=== PATIENT | female | born 1970 | race Caucasian/White ===

== ENCOUNTER → 2020-08-30 | Outpatient (CLI) | payer OTHER ==
--- NOTE | 2020-08-30 11:59 | US ---
EXAMINATION TYPE: US abdomen complete DATE OF EXAM: 08/30/2020 COMPARISON: NONE CLINICAL HISTORY: 50-year-old female R11.0 nausea. TECHNIQUE: Multiple sonographic images of the abdomen are obtained. FINDINGS: EXAM MEASUREMENTS: Liver Length: 13.8 cm Gallbladder Wall: 0.2 cm CBD: 0.5 cm Spleen: 10.9 cm Right Kidney: 9.8 x 4.5 x 4.6 cm Left Kidney: 9.7 x 4.1 x 4.6 cm Pancreas: wnl Liver: wnl Gallbladder: No stones seen Evidence for sonographic He's sign: No CBD: wnl Spleen: wnl Right Kidney: [id number] hydronephrosis and hydroureter on the right. Left Kidney: No hydronephrosis or masses seen Upper IVC: wnl Abd Aorta: wnl IMPRESSION: 1. Mild to moderate hydronephrosis and proximal hydroureter on the right. Consider CT to assess for a potential etiology. 2. Otherwise, no specific abnormality seen.
== END | disposition home or self-care (01) ==
LOC: RADUSWWP 07:03
PROVIDERS: ATTEND Internal Medicine
DX: N13.30 Unspecified hydronephrosis (principal); N13.4 Hydroureter
CPT/HCPCS: 76700

== ENCOUNTER 2020-09-18 11:27 | Day surgery (SDC) | payer OTHER ==
[2020-09-13 08:55] VITALS: BMI 22.2
[~2020-09-18 11:27] MED LIST: LACTATED RINGERS 1,000 ML IV SCH; LIDOCAINE 1% (10MG/ML) FOR IV START INTRADERMA PRN
[2020-09-18 12:41] VITALS: TEMP 98.3
[2020-09-18] MEDS ORDERED: PROPOFOL 10 MG/ML 20 ML VIAL IV ONE (12:51)
--- NOTE | 2020-09-18 13:08 | P.PCN ---
Date of Procedure: 09/18/20 Procedure(s) Performed: Brief history: Patient is a pleasant, 50-year-old white female scheduled for an elective upper endoscopy as well as colonoscopy as a part of evaluation of I deficiency anemia. She denies any GI symptoms. Procedure performed: Esophagogastroduodenoscopy with biopsy Colonoscopy Preoperative diagnosis: Iron deficiency anemia Anes thesia: MAC Procedure: After informed consent was obtained from the patient was brought into the endoscopy unit and IV sedation was administered by anesthesia under continuous monitoring. Initially upper endoscopy was done. The Olympus GF 160 video endoscope was inserted inserted into the mouth and esophagus intubated without any difficulty and was gradually advanced into the stomach and duodenum and carefully examined. The bulb and second part of the duodenum appeared normal. As his were done from the duodenum to rule out celiac disease. The scope was then withdrawn into the stomach adequately insufflated with air and upon careful examination the antrum and body, cardia and fundus appeared normal. Gastritis and biopsies were done from the antrum of the stomach. The scope was then withdrawn into the esophagus. The GE junction was located at 38 cm to the incisors. Small sliding-type well hernia noted. It appeared regular with no erythema erosions or ulcerations. Rest of the esophagus appeared normal. Patient tolerated the procedure well. At this time the patient continued to remain sedation. Initial digital rectal examination was normal. Olympus CF 160 video colonoscope was then inserted into the rectum and gradually advanced to the cecum without any difficulty. Careful examination was performed as the scope was gradually being withdrawn. The prep was excellent. The cecum, ascending colon, transverse colon, descending colon, sigmoid colon and rectum appeared normal. Retroflexion was performed in the rectum and no lesions were noted. Patient tolerated the procedure well. Impression: 1. Upper endoscopy revealed mild antral gastritis and small hiatal hernia. 2. Colonoscopy was essentially within normal limits with no evidence of colitis or colorectal neoplasia. Recommendations: Findings of this examination were discussed with the patient as well as her family. She was advised to follow with the biopsy results. She was advised to have a repeat screening colonoscopy in 10 years.
[2020-09-18 13:43] VITALS: BP 134/76; PULSE 83; RESP 20
== END 2020-09-18 13:44 | disposition home or self-care (01) ==
LOC: ORWHC2ENDO 11:27
PROVIDERS: ATTEND Internal Medicine Gastroenterology
DX: D50.9 Iron deficiency anemia, unspecified (principal); K29.50 Unspecified chronic gastritis without bleeding; K44.9 Diaphragmatic hernia without obstruction or gangrene
CPT/HCPCS: 81025; 88305; 45378; 43239; J2704

== ENCOUNTER → 2022-03-19 | Outpatient (CLI) | payer OTHER ==
--- NOTE | 2022-03-19 11:05 | CT ---
EXAMINATION TYPE: CT urogram wo/w con CT DLP: 2724 mGycm, Automated exposure control for dose reduction was used. DATE OF EXAM: 03/19/2022 10:32 AM COMPARISON: Abdominal ultrasound 08/30/2020. CLINICAL INDICATION:Female, 52 years old with history of N13.30 hydronephrosis; TECHNIQUE: Urogram was performed before and after the uneventful administration of 70 mL of Isovue-300 intraveno usly. Delayed imaging was performed.. Coronal and sagittal reformats were performed. One or more CT d ose reduction strategies were utilized during this examination. 2D and 3D reconstructions are perform ed to assist visualization of the urinary tract on a separate workstation. FINDINGS: GENITOURINARY: RIGHT KIDNEY AND URETER: Few nonobstructive right renal calculi with largest in the inferior pole minor suring up to 2 mm. Mild right hydroureteronephrosis with focal transition at the ureteropelvic juncti on. No obstructing calculus identified. Contrast is demonstrated within the collecting system on franklin yed phase. There is decreased attenuation of the contrast in the right ureter compared to the left ho wever there is no filling defect or wall thickening identified. No renal mass. Regions of cortical th inning identified likely related to remote injury. LEFT KIDNEY AND URETER: Few nonobstructive left renal calculi measuring up to 2 mm. Prominent left ex trarenal pelvis without evidence of hydroureter or hydronephrosis. Contrast is demonstrated within th e collecting system on the delayed phase. Mild urothelial wall enhancement in the renal pelvis. No ur othelial lesions: no filling defect, dilation, stricture. Regions of cortical thinning identified lik sakina related to an old injury. No renal mass. URINARY BLADDER: Poorly opacified with limits evaluation for mass or other lesions. Trabeculated appe arance with diverticula demonstrated. No calculi demonstrated. REPRODUCTIVE: Retroverted uterus. No suspicious adnexal mass.. ABDOMEN LIVER: Unremarkable. GALLBLADDER AND BILE DUCTS: Unremarkable PANCREAS: Unremarkable. SPLEEN: Unremarkable. ADRENAL GLANDS: Unremarkable. STOMACH AND BOWEL: Unremarkable. No evidence of bowel obstruction. PERITONEUM: No evidence of pneumoperitoneum, free fluid, or adenopathy. VASCULATURE: No aortic aneurysm. MUSCULOSKELETAL: No acute osseous abnormalities. No aggressive osseous lesion. SOFT TISSUE/ABDOMINAL WALL: Fat filled bilateral inguinal hernias with right greater than left. LOWER CHEST: Bibasilar linear scarring and or atelectasis. IMPRESSION: 1. Mild right hydroureteronephrosis with focal transition at the ureteropelvic junction. No obstructi ng calculus or lesion identified. Contrast does extend through the right ureter into the urinary blad jaden on delayed imaging without focal lesion. No suspicious renal lesion. Findings suggest possible UP J stricture. Decreased attenuation of the contrast within the right ureter compared to the left. 2. Prominent left extra renal pelvis with nonspecific urothelial thickening. No evidence for hydronep hrosis or obstructing calculus. No suspicious renal lesion. 3. Nodular to bilateral renal calculi. 4. Trabeculated appearance of the urinary bladder with bladder diverticulum. There is poor opacificat ion which limits evaluation for masses. 5. Bilateral fat filled inguinal hernias with right greater than left.
== END | disposition home or self-care (01) ==
LOC: RADCTMAIN 08:21
PROVIDERS: ATTEND Urology
DX: N13.30 Unspecified hydronephrosis (principal)
CPT/HCPCS: 74178; 36415; 74400; Q9967

== ENCOUNTER → 2022-04-21 | Outpatient (CLI) | payer OTHER ==
[~2022-04-21] MED LIST changes: +FUROSEMIDE 10 MG/ML 2 ML VIAL IV ONE; -LACTATED RINGERS 1,000 ML IV SCH; -LIDOCAINE 1% (10MG/ML) FOR IV START INTRADERMA PRN
--- NOTE | 2022-04-21 14:15 | NM ---
EXAMINATION TYPE: NM lasix renogram DATE OF EXAM: 04/21/2022 COMPARISON: 03/21/2022 HISTORY: Hydronephrosis Following administration of 9.7 mCi Tc 99m MAG3 with 20mg Lasix. Immediate images post injection FINDINGS: Left: 39.6 %. Right: 60.4 %. Max renal flow left: 10 minutes. Max renal flow right: 14.5 minutes. Satisfactory accumulation of radiotracer within both renal collecting systems. After the administrati on of Lasix, there is delayed excretion of contrast from the bilateral collecting system with greater involvement of the right. T 1/2 left: NOT AVAILABLE minutes. T 1/2 right: NOT AVAILABLE minutes. IMPRESSION: 1. Abnormal split renal function of 60% on the right and 40% on the left. 2. Delayed excretion from the right system compatible with hydronephrosis.
== END | disposition home or self-care (01) ==
LOC: RADNMMAIN 12:31
PROVIDERS: ATTEND Urology
DX: R94.4 Abnormal results of kidney function studies (principal); N13.30 Unspecified hydronephrosis
CPT/HCPCS: 78708; A9562

== ENCOUNTER 2022-06-28 13:05 | Emergency (ER) | payer OTHER ==
[2022-06-28] MEDS ORDERED: GLUCAGON 1 MG/ML VIAL IVP STA (13:24)
[2022-06-28] MEDS ORDERED: SODIUM CHLORIDE 0.9% 500 ML 500 ML IV ONE (13:24)
--- NOTE | 2022-06-28 14:00 | XR ---
EXAMINATION TYPE: XR chest 2V DATE OF EXAM: 06/28/2022 1:41 PM COMPARISON: None TECHNIQUE: XR chest 2V Frontal and lateral views of the chest. CLINICAL INDICATION:Female, 52 years old with history of food impaction; FINDINGS: Lungs/Pleura: There is flattening of the diaphragm with increased lucency of the lungs. No evidence o f pneumothorax, pleural effusion or focal consolidation. Pulmonary vascularity: Unremarkable. Heart/mediastinum: Cardiomediastinal silhouette is unremarkable. Musculoskeletal: No acute osseous pathology. IMPRESSION: 1. No acute cardiopulmonary disease process. 2. COPD changes.
--- NOTE | 2022-06-28 14:35 | ED ---
General Adult HPI - General Chief complaint: Skin/Abscess/Foreign Body Stated complaint: foreign object in throat Time Seen by Provider: 06/28/22 13:20 Source: patient, RN notes reviewed, old records reviewed Mode of arrival: ambulatory Limitations: no limitations - History of Present Illness Initial comments: Patient is a 52-year-old female with no significant past medical history presents emergency Department after eating cantaloupe at home. Believes it is stuck in her throat. This occurred suddenly prior to arrival. Is complaining of discomfort in the back of her throat. She is unable to swallow any solids or liquids. Is having to spit up all of her oral secretions that she cannot tolerate swallowing them. She denies any difficulty in breathing. Denies any nausea. Denies any diarrhea. Denies any sick contacts. Since this is not occurred previously. Presents emergency department for further evaluation. Has no known ALLERGIES. Presents with her father. - Related Data Home Medications Medication Instructions Recorded Confirmed Ascorbic Acid [Vitamin C] 500 mg PO DAILY 09/13/20 09/13/20 Multivit with Calcium,Iron,Min 1 each PO DAILY 09/13/20 09/13/20 [Women's Multivitamin] Allergies Allergy/AdvReac Type Severity Reaction Status Date / Time No Known Allergies Allergy Verified 09/18/20 12:12 Review of Systems ROS Statement: Those systems with pertinent positive or pertinent negative responses have been documented in the HPI. Review of Systems: CONST: Denies fever EYES: Denies blurry vision ENT: Denies nasal congestion C/V: Denies Chest pain RESP: Denies shortness of breath GI: Denies abdominal pain : Denies dysuria SKIN: Denies rash. MSK: Denies joint pain. NEURO: Denies headache ROS Other: All systems not noted in ROS Statement are negative. Past Medical History Past Medical History: No Reported History History of Any Multi-Drug Resistant Organisms: None Reported Past Surgical History: No Surgical Hx Reported Past Psychological History: No Psychological Hx Reported Smoking Status: Never smoker Past Alcohol Use History: Occasional Past Drug Use History: None Reported General Exam - General Exam Comments Initial Comments: General: Appears in no acute distress. HEAD: Normal with no signs of head trauma. EYES: EOMI ENT: Patient is actively spitting on oral secretions. No obvious abnormality in the posterior oropharynx. Uvula is midline. Patient unable to swallow. Negative stridor. RESPIRATORY: Clear breath sounds bilaterally. No respiratory distress. C/V: Regular rate and rhythm. S1 and S2 auscultated, peripheral pulses 2+ and intact throughout ABD: Abd is soft, nontender, nondistended EXT: Normal range of motion, no obvious deformity SKIN: No rashes or lesions observed on exposed skin. NEURO: Alert and oriented 4. Limitations: no limitations Course Vital Signs 06/28/22 06/28/22 06/28/22 13:09 14:50 15:40 Temperature 98 F 97.8 F 97.9 F Pulse Rate 107 H 86 89 Respiratory 18 20 18 Rate Blood Pressure 144/85 145/92 133/89 O2 Sat by Pulse 95 97 97 Oximetry Medical Decision Making - Medical Decision Making Based on the patient's presentation and physical exam, and concern for an esophageal food impaction likely cantaloupe for the patient. She is unable to tolerate oral intake. She is spitting up her oral secretions. Did recommend a chest x-ray as well as trial with IV medications IV fluids, glucagon, Valium. She was in agreement this plan. Vital signs within except for limits. No respiratory distress. Chest x-ray revealed no acute cardio pulmonary process. After approximate 1 hour of observation, patient is no change in symptoms. Still unable to tolerate oral intake. Still unable to tolerate her secretions. I discussed the patient that she likely requires an EGD for retrieval of the food impaction. However we do not have gastroenterology here to perform the procedure. Therefore she will likely require transfer. She was in agreement this plan as was her father. I did attempt to transfer the patient to [facility]. GI services are available there. Accepting physician is Dr. Hernández in the ER. Patient be transferred via EMS for evaluation by GI. Patient is transferred in stable condition.Reason for transfer is that we do not have GI services available and she requires GI evaluation. Was pt. sent in by a medical professional or institution (, PA, RETURNED GOODS REPAIRER, urgent care, hospital, or fdc...) When possible be specific @ -No Did you speak to anyone other than the patient for history (EMS, parent, family, police, friend...)? What history was obtained from this source @ -Yes, patient's father who assisted in the history. Did you review nursing and triage notes (agree or disagree)? Why? @ -I reviewed and agree with nursing and triage notes Were old charts reviewed (outside hosp., previous admission, EMS record, old EKG, old radiological studies, urgent care reports/EKG's, fdc records)? Report findings @ -No old charts were reviewed Differential Diagnosis (chest pain, altered mental status, abdominal pain women, abdominal pain men, vaginal bleeding, weakness, fever, dyspnea, syncope, headache, dizziness, GI bleed, back pain, seizure, CVA, palpatations, mental health)? @ -not applicable EKG interpreted by me (3pts min.). @ -None done X-rays interpreted by me (1pt min.). @ -Chest x-ray reveals no acute cardiopulmonary process. CT interpreted by me (1pt min.). @ -None done U/S interpreted by me (1pt. min.). @ -None done What testing was considered but not performed or refused? (CT, X-rays, U/S, labs)? Why? @ -None What meds were considered but not given or refused? Why? @ -None Did you discuss the management of the patient with other professionals (professionals i.e. , PA, RETURNED GOODS REPAIRER, lab, RT, psych nurse, geriatric social worker, wet pan operator, teacher, customer service officer, case hardener)? Give summary @ -No Was smoking cessation discussed for >3mins.? @ -No Was critical care preformed (if so, how long)? @ -Yes, 35 min. Were there social determinants of health that impacted care today? How? (Homelessness, low income, unemployed, alcoholism, drug addiction, transportation, low edu. Level, literacy, decrease access to med. care, intermediate, rehab)? @ -No Was there de-escalation of care discussed even if they declined (Discuss DNR or withdrawal of care, Hospice)? DNR status @ -No What co-morbidities impacted this encounter? (DM, HTN, Smoking, COPD, CAD, Cancer, CVA, ARF, Chemo, Hep., AIDS, mental health diagnosis, sleep apnea, morbid obesity)? @ -None Was patient admitted / discharged? Hospital course, mention meds given and route, prescriptions, significant lab abnormalities, going to OR and other pertinent info. @ -Transfer to [facility] for evaluation by GI services. See above for ED course. Undiagnosed new problem with uncertain prognosis? @ -No Drug Therapy requiring intensive monitoring for toxicity (Heparin, Nitro, Insulin, Cardizem)? @ -No Were any procedures done? @ -No Diagnosis/symptom? @ -Esophageal food impaction Acute, or Chronic, or Acute on Chronic? @ -Acute Uncomplicated (without systemic symptoms) or Complicated (systemic symptoms)? @ -Uncomplicated Side effects of treatment? @ -No Exacerbation, Progression, or Severe Exacerbation? @ -No Poses a threat to life or bodily function? How? (Chest pain, [place], [place], pneumonia, PE, COPD, DKA, ARF, appy, cholecystitis, CVA, Diverticulitis, Homicidal, Suicidal, threat to staff... and all critical care pts) @ -Yes, if untreated can result in significant morbidity and mortality. Critical Care Time Critical Care Time: Yes Total Critical Care Time: 35 Critical Care Time: Upon my evaluation, this patient had a high probability of imminent or life- threatening deterioration due to esophageal food impaction, transfer, which required my direct attention, intervention, and personal management. I have personally provided 35 minutes of critical care time exclusive of time spent on separately billable procedures. Time includes review of laboratory data, radiology results, discussion with consultants, and monitoring for potential decompensation. Interventions were performed as documented in my note. Disposition Clinical Impression: Esophageal obstruction due to food impaction Disposition: OTHER INSTITUTION NOT DEFINED Condition: Stable Is patient prescribed a controlled substance at d/c from ED?: No Referrals: Estela Harmon MD [Primary Care Provider] - 1-2 days Time of Disposition: 15:00 - Out of Hospital Transfer - Req. Specs Out of Hospital Transfer - Requested Specifics: Other Emergency Center (Transfer to [facility] for evaluation by GI services as we do not GI services available.)
[2022-06-28 15:41] VITALS: BP 133/89; PULSE 89; RESP 18; TEMP 97.9
== END 2022-06-28 15:42 | disposition other institution (70) ==
LOC: EC 13:05
DX: T18.128A Food in esophagus causing other injury, initial encounter (principal)
CPT/HCPCS: 71046; 99285; 96374; 96375; 96361; J1610; J3360

== ENCOUNTER → 2023-06-24 | Outpatient (CLI) | payer OTHER ==
--- NOTE | 2023-06-24 20:31 | MM ---
Reason for Exam: Screening (asymptomatic). Last screening mammogram was performed 12 month(s) ago. Patient History: Menarche at age 15. Last menstrual period: 06/03/2023 Risk Values: Ofe 5 year model risk: 0.7%. NCI Lifetime model risk: 5.7%. Prior Study Comparison: 06/12/2021 Bilateral Screening Mammogram, [facility]. 06/16/2022 Bilateral Screening Mammogram, [facility]. Tissue Density: There are scattered fibroglandular densities. Findings: Analyzed By CAD. Unchanged bilateral areas of asymmetric density. There is no suspicious group of microcalcifications or new suspicious mass in either breast. Overall Assessment: Benign, BI-RAD 2 Management: Screening Mammogram of both breasts in 1 year. . Patient should continue monthly self-breast exams. A clinical breast exam by your physician is recommended on an annual basis. This exam should not preclude additional follow-up of suspicious palpable abnormalities. Note on Ofe scores and lifetime risk: 1. A Ofe score greater than 3% is considered moderate risk. If this is the case, consider specialist referral to assess eligibility for a risk reducing agent. 2. If overall lifetime risk for the development of breast cancer is 20% or higher, the patient may qualify for future screening with alternating mammogram and breast MRI. Electronically signed and approved by: Ángel Arroyo M.D. Radiologist
== END | disposition home or self-care (01) ==
LOC: RADMAMWWP 09:45
PROVIDERS: ATTEND Internal Medicine
DX: Z12.31 Encounter for screening mammogram for malignant neoplasm of breast (principal)
CPT/HCPCS: 77067

== ENCOUNTER 2023-12-27 19:23 | Emergency (ER) | payer OTHER ==
[2023-12-27 20:30] LABS: Basophils % (A) 1 %; Eosinophils # (A) 0.1 k/uL (0-0.7); Eosinophils % (A) 1 %; HGB 11.1 gm/dL (11.4-16.0); Lymphocytes # (A) 1.4 k/uL (1.0-4.8); Lymphocytes % (A) 16 %; MCH 31.3 pg (25.0-35.0); MCHC 32.6 g/dL (31.0-37.0); MCV 96.1 fL (80.0-100.0); Monocytes # (A) 0.4 k/uL (0-1.0); Monocytes % (A) 5 %; Neutrophils # (A) 6.6 k/uL (1.3-7.7); Neutrophils % (A) 76 %; Platelet Count 199 k/uL (150-450); RBC 3.54 m/uL (3.80-5.40); RDW 12.3 % (11.5-15.5); WBC 8.8 k/uL (3.8-10.6)
[2023-12-27 20:38] LABS: ALT 15 U/L (4-34); AST 22 U/L (14-36); African American GFR (CKD) >90 (>60 ml/min/1.73 sqM); Albumin 4.2 g/dL (3.5-5.0); Alkaline Phosphatase 68 U/L (38-126); Anion Gap 8 mmol/L; Blood Urea Nitrogen 26 mg/dL (7-17); Calcium 9.5 mg/dL (8.4-10.2); Carbon Dioxide 24 mmol/L (22-30); Chloride 110 mmol/L (98-107); Glucose 109 mg/dL (74-99); Magnesium 1.8 mg/dL (1.6-2.3); Non-African American GFR(CKD) >90 (>60 ml/min/1.73 sqM); Sodium 142 mmol/L (137-145); Total Bilirubin 0.5 mg/dL (0.2-1.3); Total Protein 7.1 g/dL (6.3-8.2)
[2023-12-27 20:40] LABS: INR 1.1 (<1.2); Partial Thromboplastin Time 23.6 sec (22.0-30.0); Prothrombin Time 11.5 sec (10.0-12.5)
--- NOTE | 2023-12-27 21:05 | XR ---
EXAMINATION TYPE: XR chest 2V DATE OF EXAM: 12/27/2023 8:48 PM CLINICAL INDICATION:Female, 53 years old with history of Chest Pain; [facility] COMPARISON: Chest radiographs from 2922 TECHNIQUE: XR chest 2V Frontal view of the chest. FINDINGS: Lungs/Pleura: There is flattening of the diaphragm with increased lucency of the lungs. No evidence o f pneumothorax, pleural effusion or focal consolidation. Pulmonary vascularity: Unremarkable. Heart/mediastinum: Cardiomediastinal silhouette is unremarkable. Musculoskeletal: No acute osseous pathology. IMPRESSION: 1. No acute cardiopulmonary disease process. 2. COPD changes.
--- NOTE | 2023-12-27 21:29 | ED ---
General Adult HPI - General Chief complaint: Chest Pain Stated complaint: chest pain Time Seen by Provider: 12/27/23 21:27 Source: patient, family Mode of arrival: wheelchair Limitations: no limitations - History of Present Illness Initial comments: Patient presents to the ED with her parents for evaluation. Patient states that she has had intermittent "chest pressure" since about 5 AM this morning. Patient states that her chest pressure has currently improved to 2/10 in severity. Patient denies having any other symptoms or complaints. Patient d enies trauma or injury, fever or chills, headache, focal numbness/weakness/neuro deficit, neck/arm/jaw/back pain, pleuritic pain, dyspnea, cough or cold symptoms, palpitations, dizziness, nausea/vomiting/diaphoresis, abdominal pain, diarrhea, bloody or melanotic stool, dysuria or urinary symptoms, decreased urine output, leg or calf swelling or pain, or any other symptoms or complaints. Patient's father states that he called the patient's PCP's office earlier today, and they recommended that he bring her to the emergency room for evaluation. - Related Data Home Medications Medication Instructions Recorded Confirmed Ascorbic Acid [Vitamin C] 500 mg PO DAILY 09/13/20 09/13/20 Multivit with Calcium,Iron,Min 1 each PO DAILY 09/13/20 09/13/20 [Women's Multivitamin] Allergies Allergy/AdvReac Type Severity Reaction Status Date / Time No Known Allergies Allergy Verified 12/27/23 19:41 Review of Systems ROS Statement: Those systems with pertinent positive or pertinent negative responses have been documented in the HPI. ROS Other: All systems not noted in ROS Statement are negative. Past Medical History Past Medical History: No Reported History History of Any Multi-Drug Resistant Organisms: None Reported Past Surgical History: No Surgical Hx Reported Past Psychological History: No Psychological Hx Reported Smoking Status: Never smoker Past Alcohol Use History: Occasional Past Drug Use History: None Reported General Exam Limitations: no limitations General appearance: alert, in no apparent distress Eye exam: Present: normal appearance ENT exam: Present: mucous membranes moist Neck exam: Present: other (Trachea is in midline) Respiratory exam: Present: normal lung sounds bilaterally. Absent: respiratory distress, wheezes, rales, rhonchi, stridor, chest wall tenderness Cardiovascular Exam: Present: regular rate, normal rhythm, normal heart sounds, other (Normal radial pulses bilaterally) GI/Abdominal exam: Present: soft. Absent: distended, tenderness, guarding Extremities exam: Present: other (Negative Homans' sign bilaterally). Absent: tenderness, pedal edema, calf tenderness Neurological exam: Present: alert, oriented X3 Skin exam: Present: warm, dry, normal color Course Vital Signs 12/27/23 12/27/23 19:38 21:41 Temperature 98.0 F Pulse Rate 94 76 Respiratory 17 16 Rate Blood Pressure 124/75 118/48 O2 Sat by Pulse 98 97 Oximetry - Reevaluation(s) Reevaluation #1: 12/27/23 22:46 Patient states that her chest pain has now improved. Patient remains alert and breathing comfortably with a normal room her oxygen saturation and stable vital signs. Patient and parents are aware of the patient's test results and they will feel comfortable with the patient being discharged home at this time. Patient was counseled about chest pain, and she was clearly explained return and follow-up instructions. Patient was instructed to follow-up closely with her primary care provider. Patient feels comfortable with this plan. EKG Findings - EKG Comments: EKG Findings:: ED physician interpretation (interpreted by me): Normal sinus rhythm, ventricular rate of 86 bpm, no ectopy, normal MA and QRS intervals, normal QT interval, normal axis, no ST or T wave abnormality Medical Decision Making - Medical Decision Making Was pt. sent in by a medical professional or institution ([facility], GAME [employer]ELOPER, urgent care, hospital, or penitentiary...) When possible be specific @ -No Did you speak to anyone other than the patient for history (EMS, parent, family, police, friend...)? What history was obtained from this source @ -No Did you review nursing and triage notes (agree or disagree)? Why? @ -I reviewed and agree with nursing and triage notes Were old charts reviewed (outside hosp., previous admission, EMS record, old EKG, old radiological studies, urgent care reports/EKG's, penitentiary records)? Report findings @ -No old charts were reviewed Differential Diagnosis (chest pain, altered mental status, abdominal pain women, abdominal pain men, vaginal bleeding, weakness, fever, dyspnea, syncope, headache, dizziness, GI bleed, back pain, seizure, CVA, palpatations, mental health, musculoskeletal)? @ -Differential Chest Pain: Stable Angina, Unstable Angina, STEMI, NSTEMI, Aortic Dissection, Pneumothorax, Musculoskeletal, Esophageal Spasm, GERD, pulmonary embolism,, this is not meant to be an all-inclusive list. EKG interpreted by me (3pts min.). @ -As above X-rays interpreted by me (1pt min.). @ -Chest x-ray shows no acute cardiopulmonary disease. I agree with the radiologist's interpretation as above. CT interpreted by me (1pt min.). @ -None done U/S interpreted by me (1pt. min.). @ -None done What testing was considered but not performed or refused? (CT, X-rays, U/S, labs)? Why? @ -None What meds were considered but not given or refused? Why? @ -None Did you discuss the management of the patient with other professionals (professionals i.e. , PA, GAME DEVELOPER, lab, RT, psych nurse, professor of social work, relay technician, teacher, supply officer, major case detective)? Give summary @ -No Was smoking cessation discussed for >3mins.? @ -No Was critical care preformed (if so, how long)? @ -No Were there social determinants of health that impacted care today? How? (Homelessness, low income, unemployed, alcoholism, drug addiction, transportation, low edu. Level, literacy, decrease access to med. care, longterm, rehab)? @ -No Was there de-escalation of care discussed even if they declined (Discuss DNR or withdrawal of care, Hospice)? DNR status @ -No What co-morbidities impacted this encounter? (DM, HTN, Smoking, COPD, CAD, Cancer, CVA, ARF, Chemo, Hep., AIDS, mental health diagnosis, sleep apnea, morbid obesity)? @ -None Was patient admitted / discharged? Hospital course, mention meds given and route, prescriptions, significant lab abnormalities, going to OR and other pertinent info. @ -Patient has no identifiable cardiac risk factors. Patient's EKG and chest x-ray are fairly unremarkable. Patient's troponin and D-dimer are negative. Patient's vital signs are stable/normal. I do not suspect an emergent medical condition at this time. Will discharge patient home with her parents at this time. Patient and parents feel comfortable with this plan. Undiagnosed new problem with uncertain prognosis? @ -No Drug Therapy requiring intensive monitoring for toxicity (Heparin, Nitro, Insulin, Cardizem)? @ -No Were any procedures done? @ -No Diagnosis/symptom? @ -Chest pain Acute, or Chronic, or Acute on Chronic? @ -Acute Uncomplicated (without systemic symptoms) or Complicated (systemic symptoms)? @ -Uncomplicated Side effects of treatment? @ -No Exacerbation, Progression, or Severe Exacerbation? @ -No Poses a threat to life or bodily function? How? (Chest pain, [place], [place], pneumonia, PE, COPD, DKA, ARF, appy, cholecystitis, CVA, Diverticulitis, Homicidal, Suicidal, threat to staff... and all critical care pts) @ -No - Lab Data Result diagrams: 12/27/23 20:21 12/27/23 20:21 Lab Results 12/27/23 12/27/23 12/27/23 Range/Units 20:21 20:21 20:21 WBC 8.8 (3.8-10.6) k/uL RBC 3.54 L (3.80-5.40) m/uL Hgb 11.1 L (11.4-16.0) gm/dL Hct 34.0 (34.0-46.0) % MCV 96.1 (80.0-100.0) fL MCH 31.3 (25.0-35.0) pg MCHC 32.6 (31.0-37.0) g/dL RDW 12.3 (11.5-15.5) % Plt Count 199 (150-450) k/uL MPV 8.0 Neutrophils % 76 % Lymphocytes % 16 % Monocytes % 5 % Eosinophils % 1 % Basophils % 1 % Neutrophils # 6.6 (1.3-7.7) k/uL Lymphocytes # 1.4 (1.0-4.8) k/uL Monocytes # 0.4 (0-1.0) k/uL Eosinophils # 0.1 (0-0.7) k/uL Basophils # 0.0 (0-0.2) k/uL PT 11.5 (10.0-12.5) sec INR 1.1 (<1.2) APTT 23.6 (22.0-30.0) sec D-Dimer (<0.60) mg/L FEU Sodium 142 (137-145) mmol/L Potassium 4.0 (3.5-5.1) mmol/L Chloride 110 H (98-107) mmol/L Carbon Dioxide 24 (22-30) mmol/L Anion Gap 8 mmol/L BUN 26 H (7-17) mg/dL Creatinine 0.69 (0.52-1.04) mg/dL Est GFR (CKD-EPI)AfAm >90 (>60 ml/min/1.73 sqM) Est GFR (CKD-EPI)NonAf >90 (>60 ml/min/1.73 sqM) Glucose 109 H (74-99) mg/dL Calcium 9.5 (8.4-10.2) mg/dL Magnesium 1.8 (1.6-2.3) mg/dL Total Bilirubin 0.5 (0.2-1.3) mg/dL AST 22 (14-36) U/L ALT 15 (4-34) U/L Alkaline Phosphatase 68 (38-126) U/L Troponin I (0.000-0.034) ng/mL Total Protein 7.1 (6.3-8.2) g/dL Albumin 4.2 (3.5-5.0) g/dL 12/27/23 12/27/23 Range/Units 20:21 21:51 WBC (3.8-10.6) k/uL RBC (3.80-5.40) m/uL Hgb (11.4-16.0) gm/dL Hct (34.0-46.0) % MCV (80.0-100.0) fL MCH (25.0-35.0) pg MCHC (31.0-37.0) g/dL RDW (11.5-15.5) % Plt Count (150-450) k/uL MPV Neutrophils % % Lymphocytes % % Monocytes % % Eosinophils % % Basophils % % Neutrophils # (1.3-7.7) k/uL Lymphocytes # (1.0-4.8) k/uL Monocytes # (0-1.0) k/uL Eosinophils # (0-0.7) k/uL Basophils # (0-0.2) k/uL PT (10.0-12.5) sec INR (<1.2) APTT (22.0-30.0) sec D-Dimer 0.38 (<0.60) mg/L FEU Sodium (137-145) mmol/L Potassium (3.5-5.1) mmol/L Chloride (98-107) mmol/L Carbon Dioxide (22-30) mmol/L Anion Gap mmol/L BUN (7-17) mg/dL Creatinine (0.52-1.04) mg/dL Est GFR (CKD-EPI)AfAm (>60 ml/min/1.73 sqM) Est GFR (CKD-EPI)NonAf (>60 ml/min/1.73 sqM) Glucose (74-99) mg/dL Calcium (8.4-10.2) mg/dL Magnesium (1.6-2.3) mg/dL Total Bilirubin (0.2-1.3) mg/dL AST (14-36) U/L ALT (4-34) U/L Alkaline Phosphatase (38-126) U/L Troponin I <0.012 (0.000-0.034) ng/mL Total Protein (6.3-8.2) g/dL Albumin (3.5-5.0) g/dL - Radiology Data Chest x-ray: 1. No acute cardiopulmonary disease process. 2. COPD changes. Disposition Clinical Impression: Chest pain Disposition: HOME SELF-CARE Condition: Stable Instructions (If sedation given, give patient instructions): Chest Pain (ED) Additional Instructions: Return to the ER immediately should you develop new or worsening pain, shortness of breath, a fever, vomiting, feeling dizzy or faint, or new or worsening symptoms. Follow-up closely with your primary care provider. Is patient prescribed a controlled substance at d/c from ED?: No Referrals: Estela Harmon MD [Primary Care Provider] - 1-2 days Time of Disposition: 22:49
[2023-12-27 21:46] VITALS: RESP 16
[2023-12-27 23:56] VITALS: BP 126/62; PULSE 78; TEMP 98.3
== END 2023-12-27 23:56 | disposition home or self-care (01) ==
LOC: EC 19:23
DX: R07.89 Other chest pain (principal)
CPT/HCPCS: 36415; 71046; 80053; 83735; 84484; 85025; 85379; 85610; 85730; 93005; 99285

== ENCOUNTER → 2024-09-04 | Outpatient (CLI) | payer OTHER ==
--- NOTE | 2024-09-04 13:37 | MM ---
Reason for Exam: Screening (asymptomatic). Last mammogram was performed 1 year(s) and 3 month(s) ago. Patient History: Menarche at age 15. Risk Values: Ofe 5 year model risk: 0.7%. NCI Lifetime model risk: 5.6%. Prior Study Comparison: 06/12/2021 Bilateral Screening Mammogram, [facility]. 06/16/2022 Bilateral Screening Mammogram, [facility]. 06/24/2023 Bilateral MG screening mammo w CAD, [facility]. Tissue Density: There are scattered areas of fibroglandular density. Findings: Analyzed By CAD. Unchanged bilateral areas of asymmetric density. There is no suspicious group of microcalcifications or new suspicious mass in either breast. Overall Assessment: Benign, BI-RAD 2 Management: Screening Mammogram of both breasts in 1 year. Patient should continue monthly self-breast exams. A clinical breast exam by your physician is recommended on an annual basis. This exam should not preclude additional follow-up of suspicious palpable abnormalities. Note on Ofe scores and lifetime risk: 1. A Ofe score greater than 3% is considered moderate risk. If this is the case, consider specialist referral to assess eligibility for a risk reducing agent. 2. If overall lifetime risk for the development of breast cancer is 20% or higher, the patient may qualify for future screening with alternating mammogram and breast MRI. [facility], , 09/04/2024 1:34 PM. Electronically signed and approved by: Ánegl Arroyo M.D. Radiologist
== END | disposition home or self-care (01) ==
LOC: RADMAMWWP 11:26
PROVIDERS: ATTEND Internal Medicine
DX: Z12.31 Encounter for screening mammogram for malignant neoplasm of breast (principal); R92.323 Mammographic fibroglandular density, bilateral breasts
CPT/HCPCS: 77067